=== PATIENT | male | born 1985 | race African-American/Black ===

== ENCOUNTER 2019-12-15 11:51 | Emergency (ER) | payer OTHER ==
[~2019-12-15] VITALS: Ht 172.7 cm; Wt 100.8 kg
[2019-12-15 12:02] VITALS: BP 153/80
[2019-12-15] MEDS ORDERED: KETOROLAC 60 MG/2 ML VIAL. IM ONE (12:45)
[2019-12-15] MEDS ORDERED: diazePAM 5 MG TABLET PO ONE (12:45)
[2019-12-15] MEDS ORDERED: METH-38 PO (13:24)
--- NOTE | 2019-12-15 13:42 | PHYS DOC ---
Past History Past Medical History: No Pertinent History Past Surgical History: No Surgical History Alcohol Use: Rarely Adult General Chief Complaint Chief Complaint: Neck Pain HPI HPI Patient is a 34 year old male who presents with right-sided neck pain. He woke up with this 2 days ago. It is progressively gotten worse. He is able to move his head side to side but it hurts on the right side. He denies any headache, numbness, weakness, confusion, fever. He states that he took a nap 2 days ago on the couch and woke up with this pain. He states it hurts more when he touches it. He denies any chest pain, shortness of breath, fever. Review of Systems Review of Systems General: Denies fever, chills, sweats, fatigue Eyes: Denies drainage, blurred vision HENT: Denies rhinorrhea, sore throat Respiratory: Denies cough, shortness of breath, wheezing Cardiac: Denies edema, palpitations, chest pain GI: Denies abdominal pain, N/V MSK: Denies back pain\.reports neck pain Skin: Denies rash, jaundice Neuro: Denies headache, dizziness Psychiatric: Denies SI/HI Current Medications Current Medications Current Medications Medications (Trade) Dose Ordered Sig/Alejo Start Time Stop Time Status Last Admin Dose Admin Diazepam (Valium) 5 mg 1X ONCE 12/15/19 12:45 12/15/19 12:46 DC 12/15/19 12:45 5 MG Ketorolac Tromethamine (Toradol Im) 60 mg 1X ONCE 12/15/19 12:45 12/15/19 12:46 DC 12/15/19 12:47 60 MG Allergies Allergies Allergies Coded Allergies Type Severity Reaction Last Updated Verified No Known Drug Allergies 12/15/19 No Physical Exam Physical Exam Constitutional: Well developed, well nourished, Cooperative, NAD, non-toxic appearing HEENT: Normocephalic, atraumatic, oropharynx moist, EOMI, PERRL, no drainage from eyes, normal conjunctiva Neck: Supple, normal range of motion, no stridor Cardiovascular: RRR, 2+ radial pulses bilaterally, no edema Respiratory: CTA bilaterally, no respiratory distress, no wheezing/crackles Abdomen: Soft, nontender, nondistended, no masses Skin: Warm, dry, intact Extremities: No obvious deformities, right sided muscle tension along the sternocleidomastoid Neurologic: Alert and Oriented x3, motor and sensory function grossly normal, no focal deficits Psychologic: Normal affect, normal judgment, normal mood. No SI/HI Current Patient Data Vital Signs Vital Signs Date Time Temp Pulse Resp B/P (MAP) Pulse Ox O2 Delivery O2 Flow Rate FiO2 12/15/19 13:32 74 18 99 Room Air 12/15/19 12:02 98.1 153/80 (104) EKG EKG [] Radiology/Procedures Radiology/Procedures [] Course & Med Decision Making Course & Med Decision Making Pertinent Labs and Imaging studies reviewed. (See chart for details) Patient is a 34-year-old male who presents to the emergency room complaining of nontraumatic right-sided neck pain. Patient does not have any infectious symptoms that would be suggestive of meningitis. He does not have any midline tenderness. Pain is worse with palpation. This is likely musculoskeletal in nature. Patient was given Toradol and Valium with significant relief. He would like to go home and rest. Patient's test results and vitals while in the ED were fully reviewed and discussed with the patient. Patient is stable and at this time does not need admission to the hospital. We have discussed strict return precautions and the importance of following up with their Primary Care Physician. Patient stated understanding and was given an opportunity to ask any questions. Dragon Disclaimer Dragon Disclaimer This electronic medical record was generated, in whole or in part, using a voice recognition dictation system. Departure Departure: Impression: Primary Impression: Neck pain Disposition: HOME/RESIDENCE PRIOR TO ADM Condition: STABLE Patient Instructions: Muscle Strain Scripts Methocarbamol (ROBAXIN-750) 750 Mg Tablet 1 TAB PO BID PRN for MUSCLE PAIN for 10 Days, #20 TAB 0 Refills Prov: BENITA CHÁVEZ MD 12/15/19 BENITA CHÁVEZ MD Dec 15, 2019 13:42
== END 2019-12-15 13:32 | disposition home or self-care (01) ==
LOC: ER 11:51
DX: M54.2 Cervicalgia (principal)
CPT/HCPCS: 96372; 99283; J1885